=== PATIENT | female | born 1985 | race American Indian/Alaskan Native ===

== ENCOUNTER 2017-11-28 10:48 | Emergency (ER) | payer BC ==
[2017-11-28 10:53] VITALS: BMI 29.0
[2017-11-28] MEDS ORDERED: Magnesium Citrate Oral SOL (300 ml) PO STA (11:44)
--- NOTE | 2017-11-28 11:45 | C.PDOC ---
History Of Present Illness 32 year old female presents to the ED c/o left lower back and left flank pain that has been on and off for the past 3 weeks. Patient reports she recently came back from vacation from and her last bowel movement was 2 days ago. Patient states she went to an urgent care center and was diagnosed with constipation was prescribed with Miralax. Patient reports she took the Miralax and still was not able to produce a bowel movement. Patient states she has been working out recently and think she might have pulled a muscle causing her back pain. Patient denies fever, chills, nausea, vomit, diarrhea, abdominal pain, dysuria, hematuria. Time Seen by Provider: 11/28/17 11:03 Chief Complaint (Nursing): Abdominal Pain History Per: Patient History/Exam Limitations: no limitations Onset/Duration Of Symptoms: Intermittent Episodes Current Symptoms Are (Timing): Still Present Location Of Pain/Discomfort: Other (left flank ) Radiation Of Pain To:: Back Quality Of Discomfort: "Pain" Exacerbating Factors: None Alleviating Factors: None Last Bowel Movement: Days Ago Recent travel outside of the [place]: No Additional History Per: Patient Abnormal Vaginal Bleeding: No Past Medical History Reviewed: Historical Data, Nursing Documentation, Vital Signs Vital Signs: Last Vital Signs Temp 98.6 F 11/28/17 14:26 Pulse 57 L 11/28/17 14:26 Resp 16 11/28/17 14:26 BP 111/73 11/28/17 14:26 Pulse Ox 100 11/28/17 14:26 - Medical History PMH: Asthma Surgical History: No Surg Hx Family History: States: Unknown Family Hx - Social History Hx Alcohol Use: No Hx Substance Use: No - Immunization History Hx Tetanus Toxoid Vaccination: No Hx Influenza Vaccination: No Hx Pneumococcal Vaccination: No Review Of Systems Constitutional: Negative for: Fever, Chills Cardiovascular: Negative for: Chest Pain, Palpitations Respiratory: Negative for: Cough, Shortness of Breath Gastrointestinal: Negative for: Nausea, Vomiting, Abdominal Pain, Diarrhea Musculoskeletal: Positive for: Back Pain Skin: Negative for: Rash Neurological: Negative for: Weakness, Numbness Physical Exam - Physical Exam Appears: Non-toxic, No Acute Distress Skin: Normal Color, Warm, Dry Head: Atraumatic, Normacephalic Eye(s): bilateral: Normal Inspection Nose: No Discharge, No Epistaxis Oral Mucosa: Moist Neck: Normal ROM, Supple Lymphatic: Deferred Chest: Symmetrical Cardiovascular: Rhythm Regular, No Murmur Respiratory: Normal Breath Sounds, No Rales, No Rhonchi, No Wheezing Gastrointestinal/Abdominal: Soft, No Tenderness, No Guarding, No Rebound Back: Other (Point tenderness lower back, minimal soreness left flank) Extremity: Normal ROM, No Deformity, No Swelling Neurological/Psych: Oriented x3, Normal Speech, Normal Cognition Gait: Steady ED Course And Treatment O2 Sat by Pulse Oximetry: 99 (On RA) Pulse Ox Interpretation: Normal Medical Decision Making Medical Decision Making: impression: left flank pain, lower back pain, constipation Plan: * Citrate of magnesium 300 ml PO * Motrin 600 mg PO * UA Disposition Counseled Patient/Family Regarding: Studies Performed, Diagnosis, Need For Followup, Rx Given - Disposition Referrals: [facility] [Outside] [facility] [Outside] Disposition: HOME/ ROUTINE Disposition Time: 14:10 Condition: STABLE Additional Instructions: FOLLOW UP WITH PMD/CLINIC IN 1-2 DAYS FOR RE-EVALUATION. URINE CX PENDING. COLACE 100 MG OTC 3 TIMES A DAY RECOMMENDED. IF SYMPTOMS GET WORSE OR ANY NEW CONCERNING SYMPTOMS DEVELOP RETURN TO ED. 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 - Scribe Statement The provider has reviewed the documentation as recorded by the Scribpascual Barker All medical record entries made by the Scribpascual were at my direction and personally dictated by me. I have reviewed the chart and agree that the record accurately reflects my personal performance of the history, physical exam, medical decision making, and the department course for this patient. I have also personally directed, reviewed, and agree with the discharge instructions and disposition.
[2017-11-28] MEDS ORDERED: Magnesium Citrate Oral SOL (300 ml) ONE (12:44)
[2017-11-28 13:12] LABS: HCG,QUALITATIVE URINE NEGATIVE (NEGATIVE)
[2017-11-28 13:22] LABS: SQUAMOUS EPITHIAL 1 /hpf (0-5); URINE BACTERIA RARE (<OCC); URINE BILIRUBIN NEGATIVE (NEGATIVE); URINE BLOOD 3+ (NEGATIVE); URINE CLARITY Clear (Clear); URINE COLOR Yellow (YELLOW); URINE GLUCOSE (UA) NORMAL (Normal); URINE LEUKOCYTE ESTERASE 1+ Leu/uL (Negative); URINE NITRATE NEGATIVE (NEGATIVE); URINE PROTEIN NEGATIVE (NEGATIVE); URINE UROBILINOGEN NORMAL mg/dL (0.2-1.0)
[2017-11-28 14:27] VITALS: BP 111/73; PULSE 57; RESP 16; TEMP 98.6
[2017-11-28 14:28] VITALS: O2SAT 99
== END 2017-11-28 14:35 | disposition home or self-care (01) ==
LOC: C.ER 10:48
DX: K59.00 Constipation, unspecified (principal); M54.5 Low back pain